=== PATIENT | male | born 1955 | race Caucasian/White ===

== ENCOUNTER 2019-08-23 08:19 | Emergency (ER) | payer MEDICAID ==
[~2019-08-23] VITALS: Ht 165.1 cm; Wt 72.7 kg
[2019-08-23 08:24] VITALS: BP 124/76
== END 2019-08-23 09:09 | disposition home or self-care (01) ==
LOC: EMS 08:23
DX: Z03.818 Encounter for observation for suspected exposure to other biological agents ruled out (principal)
CPT/HCPCS: 99283; U0003